=== PATIENT | female | born 1975 | race Caucasian/White ===

== ENCOUNTER → 2017-06-26 | Outpatient (CLI) | payer OTHER ==
--- NOTE | 2017-06-26 07:58 | MR ---
EXAMINATION TYPE: MR shoulder RT wo con DATE OF EXAM: 06/26/2017 COMPARISON: NONE HISTORY: Right shoulder pain, due to injury TECHNIQUE: Multiplanar, multisequence imaging of the right shoulder is performed without contrast. FINDINGS: There is marked hypertrophy of the AC joint with mass effect upon the supraspinatus musculo tendinous junction and significant impingement. Increased signal within the AC joint suggested that a ctive inflammation. There is no evidence of recurrent or cuff tear or retraction. There is a small amount of fluid in the subacromial subdeltoid bursa. There is ill-definition of the bursal surface of the insertion of the subscapularis compatible with bursal surface fraying and tendinosis. No sizable joint effusion. Glenohumeral ligaments intact. Biceps tendon is well situated within the bicipital groove. There is a normal course and caliber to t he biceps tendon with mild increased signal surrounding the tendon compatible tendinosis. Intracapsul ar portion of the biceps tendon and biceps anchor have a normal appearance. Assessment of bony labrum demonstrates a normal appearance with no diagnostic evidence of tear. Suprascapular Notch has a normal appearance. There is some heterogeneous signal involving the deltoid posteriorly which is felt to be artifactual as only seen on the T2 sagittal image. Correlate clinica lly. IMPRESSION: 1. Impingement secondary to AC joint arthropathy with no evidence of through thickness tear or retrac tion. There is bursal surface fraying near the insertion of supraspinatus tendon. 2. Mild bicipital tendinosis.
== END | disposition home or self-care (01) ==
LOC: RADMRIMAIN 06:59
PROVIDERS: ATTEND Internal Medicine
DX: M75.21 Bicipital tendinitis, right shoulder (principal); M25.811 Other specified joint disorders, right shoulder; M12.811 Other specific arthropathies, not elsewhere classified, right shoulder